=== PATIENT | female | born 1950 | race Caucasian/White ===

== ENCOUNTER 2024-06-29 13:21 | Outpatient (CLI) | payer BC, SELFPAY | END 2024-06-29 13:22 | disposition home or self-care (01) | PROVIDERS: Visit Provider Nurse Practitioner Family | DX: I87.313 Chronic venous hypertension (idiopathic) with ulcer of bilateral lower extremity (principal); E10.622 Type 1 diabetes mellitus with other skin ulcer; L97.828 Non-pressure chronic ulcer of other part of left lower leg with other specified severity; L97.818 Non-pressure chronic ulcer of other part of right lower leg with other specified severity; L97.218 Non-pressure chronic ulcer of right calf with other specified severity; Z79.4 Long term (current) use of insulin; Z87.891 Personal history of nicotine dependence | CPT/HCPCS: 87070; 87186; 97597; 97598; G0463 ==

== ENCOUNTER 2024-07-13 14:32 | Outpatient (CLI) | payer BC, SELFPAY | END 2024-07-13 14:33 | disposition home or self-care (01) | LOC: WOUND 14:33 | PROVIDERS: Visit Provider Nurse Practitioner Family | DX: I87.313 Chronic venous hypertension (idiopathic) with ulcer of bilateral lower extremity (principal); E10.622 Type 1 diabetes mellitus with other skin ulcer; L97.828 Non-pressure chronic ulcer of other part of left lower leg with other specified severity; L97.818 Non-pressure chronic ulcer of other part of right lower leg with other specified severity; L97.218 Non-pressure chronic ulcer of right calf with other specified severity; Z79.4 Long term (current) use of insulin | CPT/HCPCS: 97597; 97598 ==

== ENCOUNTER 2024-07-26 13:40 | Outpatient (CLI) | payer BC, SELFPAY | END 2024-07-26 13:41 | disposition home or self-care (01) | LOC: WOUND 13:40 | PROVIDERS: Visit Provider Nurse Practitioner Family | DX: I87.313 Chronic venous hypertension (idiopathic) with ulcer of bilateral lower extremity (principal); E10.622 Type 1 diabetes mellitus with other skin ulcer; L97.822 Non-pressure chronic ulcer of other part of left lower leg with fat layer exposed; L97.812 Non-pressure chronic ulcer of other part of right lower leg with fat layer exposed; L97.212 Non-pressure chronic ulcer of right calf with fat layer exposed; F17.200 Nicotine dependence, unspecified, uncomplicated; Z79.4 Long term (current) use of insulin | CPT/HCPCS: 11042; 11045 ==

== ENCOUNTER 2024-08-10 10:56 | Outpatient (CLI) | payer BC, SELFPAY | END 2024-08-10 10:57 | disposition home or self-care (01) | LOC: WOUND 10:56 | PROVIDERS: Visit Provider Nurse Practitioner Family | DX: I87.313 Chronic venous hypertension (idiopathic) with ulcer of bilateral lower extremity (principal); E10.622 Type 1 diabetes mellitus with other skin ulcer; L97.218 Non-pressure chronic ulcer of right calf with other specified severity; L97.818 Non-pressure chronic ulcer of other part of right lower leg with other specified severity; L97.828 Non-pressure chronic ulcer of other part of left lower leg with other specified severity; Z79.4 Long term (current) use of insulin | CPT/HCPCS: 97597; 97598 ==

== ENCOUNTER 2024-08-30 10:44 | Outpatient (CLI) | payer BC, SELFPAY | END 2024-08-30 10:45 | disposition home or self-care (01) | LOC: WOUND 10:44 | PROVIDERS: Visit Provider Nurse Practitioner Family | DX: I87.313 Chronic venous hypertension (idiopathic) with ulcer of bilateral lower extremity (principal); E10.622 Type 1 diabetes mellitus with other skin ulcer; L97.828 Non-pressure chronic ulcer of other part of left lower leg with other specified severity; L97.818 Non-pressure chronic ulcer of other part of right lower leg with other specified severity; L97.218 Non-pressure chronic ulcer of right calf with other specified severity; F17.200 Nicotine dependence, unspecified, uncomplicated; Z79.4 Long term (current) use of insulin | CPT/HCPCS: 97597; 97598 ==

== ENCOUNTER 2024-09-07 09:58 | Outpatient (CLI) | payer BC, SELFPAY | END 2024-09-07 09:59 | disposition home or self-care (01) | LOC: WOUND 09:59 | PROVIDERS: Visit Provider Nurse Practitioner Family | DX: I87.313 Chronic venous hypertension (idiopathic) with ulcer of bilateral lower extremity (principal); E10.622 Type 1 diabetes mellitus with other skin ulcer; L97.218 Non-pressure chronic ulcer of right calf with other specified severity; L97.828 Non-pressure chronic ulcer of other part of left lower leg with other specified severity; L97.818 Non-pressure chronic ulcer of other part of right lower leg with other specified severity; Z79.4 Long term (current) use of insulin; F17.200 Nicotine dependence, unspecified, uncomplicated | CPT/HCPCS: 87070; 87186; 96372; 97597; 97598; J0696 ==

== ENCOUNTER 2024-09-13 10:50 | Outpatient (CLI) | payer BC, SELFPAY | END 2024-09-13 10:51 | disposition home or self-care (01) | LOC: WOUND 10:50 | PROVIDERS: Visit Provider Nurse Practitioner Family | DX: I87.313 Chronic venous hypertension (idiopathic) with ulcer of bilateral lower extremity (principal); E10.622 Type 1 diabetes mellitus with other skin ulcer; L97.828 Non-pressure chronic ulcer of other part of left lower leg with other specified severity; L97.818 Non-pressure chronic ulcer of other part of right lower leg with other specified severity; L97.218 Non-pressure chronic ulcer of right calf with other specified severity; Z79.4 Long term (current) use of insulin; F17.200 Nicotine dependence, unspecified, uncomplicated | CPT/HCPCS: 97597; 97598 ==

== ENCOUNTER 2024-09-27 11:01 | Outpatient (CLI) | payer BC, SELFPAY | END 2024-09-27 11:02 | disposition home or self-care (01) | LOC: WOUND 11:01 | PROVIDERS: Visit Provider Nurse Practitioner Family | DX: I87.313 Chronic venous hypertension (idiopathic) with ulcer of bilateral lower extremity (principal); E10.622 Type 1 diabetes mellitus with other skin ulcer; L97.212 Non-pressure chronic ulcer of right calf with fat layer exposed; L97.822 Non-pressure chronic ulcer of other part of left lower leg with fat layer exposed; L97.812 Non-pressure chronic ulcer of other part of right lower leg with fat layer exposed; F17.200 Nicotine dependence, unspecified, uncomplicated; Z79.4 Long term (current) use of insulin | CPT/HCPCS: 97597; 97598 ==

== ENCOUNTER 2024-10-11 10:59 | Outpatient (CLI) | payer BC, SELFPAY | END 2024-10-11 11:00 | disposition home or self-care (01) | LOC: WOUND 10:59 | PROVIDERS: Visit Provider Nurse Practitioner Family | DX: I87.311 Chronic venous hypertension (idiopathic) with ulcer of right lower extremity (principal); E10.622 Type 1 diabetes mellitus with other skin ulcer; L97.818 Non-pressure chronic ulcer of other part of right lower leg with other specified severity; L97.218 Non-pressure chronic ulcer of right calf with other specified severity; Z79.4 Long term (current) use of insulin; F17.200 Nicotine dependence, unspecified, uncomplicated | CPT/HCPCS: 97597; 97598 ==

== ENCOUNTER 2024-10-25 11:04 | Outpatient (CLI) | payer BC, SELFPAY | END 2024-10-25 11:05 | disposition home or self-care (01) | LOC: WOUND 11:05 | PROVIDERS: Visit Provider Nurse Practitioner Family | DX: I87.311 Chronic venous hypertension (idiopathic) with ulcer of right lower extremity (principal); E10.622 Type 1 diabetes mellitus with other skin ulcer; L97.215 Non-pressure chronic ulcer of right calf with muscle involvement without evidence of necrosis; L97.812 Non-pressure chronic ulcer of other part of right lower leg with fat layer exposed; F17.200 Nicotine dependence, unspecified, uncomplicated; Z79.4 Long term (current) use of insulin | CPT/HCPCS: 11043; 11046; 97597; 97598 ==

== ENCOUNTER 2024-11-10 10:58 | Outpatient (CLI) | payer BC, SELFPAY | END 2024-11-10 10:59 | disposition home or self-care (01) | LOC: WOUND 10:58 | PROVIDERS: Visit Provider Nurse Practitioner Family | DX: I87.311 Chronic venous hypertension (idiopathic) with ulcer of right lower extremity (principal); E10.622 Type 1 diabetes mellitus with other skin ulcer; L97.812 Non-pressure chronic ulcer of other part of right lower leg with fat layer exposed; L97.215 Non-pressure chronic ulcer of right calf with muscle involvement without evidence of necrosis; Z79.4 Long term (current) use of insulin | CPT/HCPCS: 97597 ==

== ENCOUNTER 2024-12-06 11:48 | Outpatient (CLI) | payer BC, SELFPAY | END 2024-12-06 11:49 | disposition home or self-care (01) | LOC: WOUND 11:49 | PROVIDERS: Visit Provider Physician Assistant Surgical | DX: I87.311 Chronic venous hypertension (idiopathic) with ulcer of right lower extremity (principal); E10.622 Type 1 diabetes mellitus with other skin ulcer; L97.215 Non-pressure chronic ulcer of right calf with muscle involvement without evidence of necrosis; L97.812 Non-pressure chronic ulcer of other part of right lower leg with fat layer exposed; S81.802A Unspecified open wound, left lower leg, initial encounter; Z79.4 Long term (current) use of insulin | CPT/HCPCS: 11042; 11045 ==

== ENCOUNTER 2024-12-13 10:49 | Outpatient (CLI) | payer BC, SELFPAY | END 2024-12-13 10:50 | disposition home or self-care (01) | LOC: WOUND 10:49 | PROVIDERS: Visit Provider Nurse Practitioner Family | DX: I87.312 Chronic venous hypertension (idiopathic) with ulcer of left lower extremity (principal); E10.622 Type 1 diabetes mellitus with other skin ulcer; L97.822 Non-pressure chronic ulcer of other part of left lower leg with fat layer exposed; Z79.4 Long term (current) use of insulin; F17.200 Nicotine dependence, unspecified, uncomplicated | CPT/HCPCS: 97597 ==

== ENCOUNTER 2024-12-20 10:51 | Outpatient (CLI) | payer BC, SELFPAY | END 2024-12-20 10:52 | disposition home or self-care (01) | LOC: WOUND 10:51 | PROVIDERS: Visit Provider Nurse Practitioner Family | DX: I87.313 Chronic venous hypertension (idiopathic) with ulcer of bilateral lower extremity (principal); E10.622 Type 1 diabetes mellitus with other skin ulcer; L97.218 Non-pressure chronic ulcer of right calf with other specified severity; L97.822 Non-pressure chronic ulcer of other part of left lower leg with fat layer exposed; Z79.4 Long term (current) use of insulin; F17.200 Nicotine dependence, unspecified, uncomplicated | CPT/HCPCS: 97597 ==

== ENCOUNTER 2025-01-03 13:11 | Outpatient (CLI) | payer BC, SELFPAY ==
--- NOTE | 2025-01-03 13:00 | CRLHL7_ITS ---
For Patients: As a result of the Century Cures Act, medical imaging exams and procedure reports are released immediately into your electronic medical record. You may view this report before your referring provider. If you have questions, please contact your health care provider. INDICATION: Pain lower extremities with nonhealing ulcers. Comparison: None. TECHNIQUE: duplex ultrasound evaluation arterial system both lower extremities; color Doppler duplex assessment; Doppler spectral analysis. FINDINGS: Right lower extremity: Common femoral artery at 200 cm/sec monophasic. Deep femoral artery 156 cm/second monophasic. Proximal SFA 151 cm/sec monophasic. Mid SFA 128 cm/sec monophasic. Distal SFA 165 cm/second monophasic. Popliteal artery 125 cm/second monophasic. Peroneal artery 71 cm/sec monophasic. [employer] 81 cm/sec monophasic. ARMANDO 75 cm/sec monophasic. DPA 97 cm/sec monophasic. Left lower extremity: Common femoral artery 139 cm/second monophasic. Deep femoral artery 89 cm/sec monophasic. Proximal SFA 303 cm/second ; with 2.5 fold velocity change indicating 50 percent narrowing. Mid SFA 100 cm/sec monophasic. Distal SFA 175 cm/sec monophasic. Popliteal artery 142 cm/sec monophasic. Peroneal artery no flow. [employer] 49 cm/second monophasic. ARMANDO 40 cm/sec monophasic. DPA 45 cm/second monophasic. IMPRESSION: 1. Diffuse calcific atheromatous changes bilateral. 2. Monophasic flow arterial system both lower extremities including the common femoral arteries indicating significant inflow disease. 3. Focal 50 percent narrowing left proximal SFA. 4. Occluded left peroneal artery. 5. Monophasic flow throughout both lower extremities including the run-off vessels. 6. Suggest obtaining CT angio abdomen, pelvis and both lower extremities with intravenous contrast for further assessment. Dictated by Cecelia Bass MD @ 01/07/2025 9:46:17 AM (Electronically Signed)
== END 2025-01-03 13:12 | disposition home or self-care (01) ==
PROVIDERS: Visit Provider Nurse Practitioner Family
DX: I87.311 Chronic venous hypertension (idiopathic) with ulcer of right lower extremity (principal); I77.1 Stricture of artery
CPT/HCPCS: 93926

== ENCOUNTER 2025-01-03 14:38 | Outpatient (CLI) | payer BC, SELFPAY | END 2025-01-03 14:39 | disposition home or self-care (01) | LOC: WOUND 14:39 | PROVIDERS: Visit Provider Physician Assistant Surgical | DX: I87.313 Chronic venous hypertension (idiopathic) with ulcer of bilateral lower extremity (principal); E10.622 Type 1 diabetes mellitus with other skin ulcer; L97.218 Non-pressure chronic ulcer of right calf with other specified severity; L97.812 Non-pressure chronic ulcer of other part of right lower leg with fat layer exposed; L97.822 Non-pressure chronic ulcer of other part of left lower leg with fat layer exposed; L97.222 Non-pressure chronic ulcer of left calf with fat layer exposed; Z79.4 Long term (current) use of insulin; F17.200 Nicotine dependence, unspecified, uncomplicated | CPT/HCPCS: 11042; 11043; 11045; 11046 ==

== ENCOUNTER 2025-01-10 11:04 | Outpatient (CLI) | payer BC, SELFPAY | END 2025-01-10 11:05 | disposition home or self-care (01) | LOC: WOUND 11:04 | PROVIDERS: Visit Provider Physician Assistant | DX: I87.313 Chronic venous hypertension (idiopathic) with ulcer of bilateral lower extremity (principal); E10.622 Type 1 diabetes mellitus with other skin ulcer; L97.812 Non-pressure chronic ulcer of other part of right lower leg with fat layer exposed; L97.212 Non-pressure chronic ulcer of right calf with fat layer exposed; L97.822 Non-pressure chronic ulcer of other part of left lower leg with fat layer exposed; L97.222 Non-pressure chronic ulcer of left calf with fat layer exposed; Z79.4 Long term (current) use of insulin | CPT/HCPCS: 97597; 97598 ==

== ENCOUNTER 2025-01-17 11:02 | Outpatient (CLI) | payer BC, SELFPAY | END 2025-01-17 11:03 | disposition home or self-care (01) | LOC: WOUND 11:02 | PROVIDERS: Visit Provider Family Medicine | DX: I87.313 Chronic venous hypertension (idiopathic) with ulcer of bilateral lower extremity (principal); E10.622 Type 1 diabetes mellitus with other skin ulcer; L97.812 Non-pressure chronic ulcer of other part of right lower leg with fat layer exposed; L97.218 Non-pressure chronic ulcer of right calf with other specified severity; L97.822 Non-pressure chronic ulcer of other part of left lower leg with fat layer exposed; L97.222 Non-pressure chronic ulcer of left calf with fat layer exposed; Z79.4 Long term (current) use of insulin; F17.200 Nicotine dependence, unspecified, uncomplicated | CPT/HCPCS: 99213; G0463 ==

== ENCOUNTER 2025-01-27 09:02 | Outpatient (CLI) | payer BC, SELFPAY | END 2025-01-27 09:03 | disposition home or self-care (01) | LOC: WOUND 09:02 | PROVIDERS: Visit Provider Nurse Practitioner Family | DX: I87.313 Chronic venous hypertension (idiopathic) with ulcer of bilateral lower extremity (principal); E10.622 Type 1 diabetes mellitus with other skin ulcer; L97.818 Non-pressure chronic ulcer of other part of right lower leg with other specified severity; L97.218 Non-pressure chronic ulcer of right calf with other specified severity; L97.822 Non-pressure chronic ulcer of other part of left lower leg with fat layer exposed; L97.222 Non-pressure chronic ulcer of left calf with fat layer exposed; Z79.4 Long term (current) use of insulin; F17.200 Nicotine dependence, unspecified, uncomplicated | CPT/HCPCS: G0463 ==

== ENCOUNTER 2025-01-31 10:56 | Outpatient (CLI) | payer BC, SELFPAY | END 2025-01-31 10:57 | disposition home or self-care (01) | LOC: WOUND 10:57 | PROVIDERS: Visit Provider Physician Assistant | DX: I87.313 Chronic venous hypertension (idiopathic) with ulcer of bilateral lower extremity (principal); E10.622 Type 1 diabetes mellitus with other skin ulcer; L97.218 Non-pressure chronic ulcer of right calf with other specified severity; L97.818 Non-pressure chronic ulcer of other part of right lower leg with other specified severity; L97.822 Non-pressure chronic ulcer of other part of left lower leg with fat layer exposed; L97.222 Non-pressure chronic ulcer of left calf with fat layer exposed; F17.200 Nicotine dependence, unspecified, uncomplicated; Z79.4 Long term (current) use of insulin | CPT/HCPCS: 99212; G0463 ==

== ENCOUNTER 2025-02-07 10:54 | Outpatient (CLI) | payer BC, SELFPAY | END 2025-02-07 10:55 | disposition home or self-care (01) | LOC: WOUND 10:54 | PROVIDERS: Visit Provider Family Medicine | DX: I87.312 Chronic venous hypertension (idiopathic) with ulcer of left lower extremity (principal); E10.622 Type 1 diabetes mellitus with other skin ulcer; L97.822 Non-pressure chronic ulcer of other part of left lower leg with fat layer exposed; F17.200 Nicotine dependence, unspecified, uncomplicated; Z79.4 Long term (current) use of insulin | CPT/HCPCS: 11042; 87070; 87186; 99213; G0463 ==